=== PATIENT | male | born 1980 | race American Indian/Alaskan Native ===

== ENCOUNTER 2017-08-08 09:37 | Emergency (ER) | payer MEDICAID ==
[2017-08-08 10:09] LABS: Hematocrit 41.7 % (35.5-45.6); Hemoglobin 13.5 gm/dl (11.8-15.2); Mean Corpuscular HGB Conc 32 % (32-34); Mean Corpuscular Hemoglobin 27 pg (28-32); Mean Corpuscular Volume 83 fl (84-94); Platelet Count 340 K/mm3 (140-440); Red Blood Count 5.02 M/mm3 (3.65-5.03); Red Cell Distribution Width 14.3 % (13.2-15.2)
[2017-08-08 10:25] LABS: BUN/Creatinine Ratio 6; Blood Urea Nitrogen 5 mg/dL (9-20); Calcium 9.5 mg/dL (8.4-10.2); Hemolysis Index 5
[2017-08-08] MEDS ORDERED: MOTRIN PO ONE (10:29)
[2017-08-08] MEDS ORDERED: FLEXERIL PO ONE (10:29)
--- NOTE | 2017-08-08 10:33 | Emergency Department Report ---
HPI - General Chief Complaint: Seizure Time Seen by Provider: 08/08/17 10:17 - HPI HPI: Room 26 The patient is a 37-year-old male presents with a chief complaint of seizure. States the patient ran out of his Dilantin 2 days ago. She states the patient was walking today when he stopped turned and fell over to his right side having seizure. The seizure lasted approximately 2 minutes. The patient recently relocated from [facility] his last seizure occurred before January 2017. Patient complains of back pain and right upper extremity pain since the seizure Location: [See above] Duration: [See above] Quality: Generalized tonic-clonic Severity: Moderate Modifying factors: [see above] Context: [see above] Mode of transportation: [not driving] ED Past Medical Hx - Past Medical History Previous Medical History?: Yes Hx Seizures: Yes Hx Psychiatric Treatment: Yes (schizophrenia) Hx Asthma: Yes - Surgical History Past Surgical History?: No - Family History Family history: no significant - Social History Smoking Status: Current Every Day Smoker (1 cigarette daily) Substance Use Type: None (denies illicit drug use) - Medications Home Medications: Home Medications Medication Instructions Recorded Confirmed Last Taken Type Chlorpromazine HCl [chlorproMAZINE] 200 mg PO TID 08/08/17 08/08/17 Unknown History Cyclobenzaprine [Flexeril] 10 mg PO TID PRN #15 tablet 08/08/17 Unknown Rx Duloxetine HCl [DULoxetine] 60 mg PO BID 08/08/17 08/08/17 Unknown History Hydroxyzine HCl [hydrOXYzine] 50 mg PO TID 08/08/17 08/08/17 Unknown History Ibuprofen [Motrin 800 MG tab] 800 mg PO Q8HR PRN #20 tablet 08/08/17 Unknown Rx Invega IM MO 08/08/17 Unknown History [place] Carbonate ER [Lithobid ER] 300 mg PO BID 08/08/17 08/08/17 Unknown History Phenytoin [Dilantin] 500 mg PO 5XD 08/08/17 08/08/17 Unknown History ProAir HFA Inhaler 90 mcg INHALATION Q6H PRN 08/08/17 08/08/17 Unknown History Proventil Hfa 90 mcg INHALATION 4XD PRN 08/08/17 08/08/17 Unknown History Sennosides [Senna] 8.6 mg PO DAILY 08/08/17 08/08/17 Unknown History ED Review of Systems ROS: Stated complaint: SEIZURE Other details as noted in HPI Constitutional: no symptoms reported Eyes: denies: eye pain ENT: denies: throat pain Cardiovascular: denies: chest pain Gastrointestinal: denies: abdominal pain Genitourinary: denies: dysuria Musculoskeletal: back pain, myalgia Neurological: denies: headache Physical Exam - Physical Exam Vital Signs: Vital Signs 08/08/17 10:04 Temperature 98.2 F Pulse Rate 104 H Respiratory 18 Rate Blood Pressure 119/80 [Left] O2 Sat by Pulse 97 Oximetry Physical Exam: GENERAL: The patient is well-nourished male lying on stretcher not appearing to be in acute distress. [] HEENT: Normocephalic. Atraumatic. Extraocular motions are intact. Patient has moist mucous membranes. Left posterior auricular alopecia NECK: Supple. No meningitic signs are noted. Trachea midline. No cervical tenderness to palpation. No cervical step offs. CHEST/LUNGS: Clear to auscultation. There is no respiratory distress noted. HEART/CARDIOVASCULAR: Regular. There is no tachycardia. There is no gallop rub or murmur. ABDOMEN: Abdomen is soft, nontender. Patient has normal bowel sounds. There is no abdominal distention. SKIN: There is no rash. There is no diaphoresis. NEURO: The patient is awake, alert, and oriented. The patient is cooperative. The patient has normal speech MUSCULOSKELETAL: There is tenderness to palpation of the proximal right forearm and humerus. There is tenderness to palpation of the lumbar and distal thoracic spine. There is no evidence of acute injury. ED Course Vital Signs 08/08/17 10:04 Temperature 98.2 F Pulse Rate 104 H Respiratory 18 Rate Blood Pressure 119/80 [Left] O2 Sat by Pulse 97 Oximetry ED Medical Decision Making - Lab Data Result diagrams: 08/08/17 09:56 08/08/17 09:56 Laboratory Tests 08/08/17 08/08/17 08/08/17 09:56 09:56 10:14 WBC 8.0 RBC 5.02 Hgb 13.5 Hct 41.7 MCV 83 L MCH 27 L MCHC 32 RDW 14.3 Plt Count 340 Sodium 136 L Potassium 3.9 Chloride 99.6 Carbon Dioxide 25 Anion Gap 15 BUN 5 L Creatinine 0.8 Estimated GFR > 60 BUN/Creatinine Ratio 6 Glucose 150 H POC Glucose Calcium 9.5 Phenytoin 7.3 L 08/08/17 10:39 WBC RBC Hgb Hct MCV MCH MCHC RDW Plt Count Sodium Potassium Chloride Carbon Dioxide Anion Gap BUN Creatinine Estimated GFR BUN/Creatinine Ratio Glucose POC Glucose 116 H Calcium Phenytoin - Radiology Data Radiology results: report reviewed (thoracic spine x-ray, lumbar spine x-ray, right humerus x-ray, right forearm x-ray), image reviewed (thoracic spine x-ray , lumbar spine x-ray, right humerus x-ray, right forearm x-ray) interpreted by me: thoracic spine x-ray- no acute fracture lumbar spine x-ray- no acute fracture right humerus x-ray- no acute fracture right forearm x-ray-no acute fracture - Differential Diagnosis seizure disorder, lumbar strain, right arm contusion, forearm fracture Critical care attestation.: If time is entered above; I have spent that time in minutes in the direct care of this critically ill patient, excluding procedure time. ED Disposition Clinical Impression: Seizure, Subtherapeutic serum dilantin level, Contusion of right arm, Lumbar strain, Elevated lithium level Disposition: TO HOME OR SELFCARE Is pt being admited?: No Does the pt Need Aspirin: No Condition: Stable Instructions: Muscle Strain (ED), Epilepsy (ED) Additional Instructions: Your lithium level today was 1.4 mmol/L. You should skip one dose of lithium and discuss with your psychiatrist immediately. Return to the emergency department immediately should you develop worsening symptoms, fever, inability to tolerate food or liquid or any other concerns. Prescriptions: Cyclobenzaprine [Flexeril] 10 mg PO TID PRN #15 tablet PRN Reason: Muscle Spasm Ibuprofen [Motrin 800 MG tab] 800 mg PO Q8HR PRN #20 tablet PRN Reason: Pain, Moderate (4-6) Referrals: PRIMARY CARE,MD [Primary Care Provider] - 3-5 Days your, psychiatrist [Other] - 3-5 Days Time of Disposition: 12:25
[2017-08-08] MEDS ORDERED: CEREBYX 500 MG.PE in NACL 0.9% 100 ML IV ONE (10:45)
--- NOTE | 2017-08-08 11:33 | XRay Report ---
FINAL REPORT EXAM: XR FOREARM RT HISTORY: pain after fall/ seizure TECHNIQUE: Two views right forearm Comparison: None FINDINGS: Normal bony mineralization. No fracture or dislocation. No radiopaque foreign body or soft tissue gas. IMPRESSION: Normal right forearm.
--- NOTE | 2017-08-08 11:33 | XRay Report ---
FINAL REPORT EXAM: XR HUMERUS 2+V RT HISTORY: pain after fall/seizure TECHNIQUE: Two views right humerus Comparison: None FINDINGS: Normal bony mineralization. No fracture or dislocation. No radiopaque foreign body or soft tissue gas. Glenohumeral joint space is intact. IMPRESSION: No radiographic abnormality of the right humerus.
--- NOTE | 2017-08-08 11:39 | XRay Report ---
FINAL REPORT EXAM: XR SPINE THORACIC 3V HISTORY: pain after fall/seizure TECHNIQUE: Three views thoracic spine Comparison: None FINDINGS: Limited thoracic series demonstrates spondylitic change of the thoracic vertebral bodies. Paraspinal line is unremarkable. Pedicles are intact. EKG leads obscures the mid vertebral body level. No definite compression fracture. IMPRESSION: Mild spondylitic change. No definite compression fracture.
--- NOTE | 2017-08-08 11:40 | XRay Report ---
FINAL REPORT EXAM: XR SPINE LUMBOSACRAL 2-3V HISTORY: pain after fall/seizure TECHNIQUE: Two views lumbar spine Comparison: None FINDINGS: Normal bony mineralization. No fracture or dislocation. Normal alignment of the vertebral bodies. Disc space heights and vertebral body heights are maintained. SI joints are open. Sacral arches are intact. No suspicious calcifications. IMPRESSION: No acute abnormality lumbosacral spine.
[2017-08-08 12:29] VITALS: BP 128/87
== END 2017-08-08 12:57 | disposition home or self-care (01) ==
LOC: ED 09:37
DX: S40.021A Contusion of right upper arm, initial encounter (principal); S39.012A Strain of muscle, fascia and tendon of lower back, initial encounter; R56.9 Unspecified convulsions; R89.2 Abnormal level of other drugs, medicaments and biological substances in specimens from other organs, systems and tissues; F17.200 Nicotine dependence, unspecified, uncomplicated; W18.30XA Fall on same level, unspecified, initial encounter; Y93.89 Activity, other specified; Y92.89 Other specified places as the place of occurrence of the external cause; Y99.8 Other external cause status
CPT/HCPCS: 36415; 72072; 72100; 73060; 73090; 80048; 80178; 80185; 82962; 85027; 96365; 99285; Q2009